=== PATIENT | female | born 2000 | race Caucasian/White ===

== ENCOUNTER 2023-11-08 06:49 | Emergency (ER) | payer OTHER ==
[~2023-11-08] VITALS: Ht 152.4 cm; Wt 99.8 kg
[2023-11-08 06:54] VITALS: BP 121/79; PULSE 85; RESP 16; TEMP 97.8; O2SAT 100
[2023-11-08] MEDS ORDERED: AMOX1TAB8 PO (07:13)
[2023-11-08] MEDS ORDERED: NAPR-54 PO (07:13)
[2023-11-08] MEDS ORDERED: OFLO5SOL27 LEFT EAR (07:13)
[2023-11-08] MEDS ORDERED: PSEU120T23 PO (07:13)
[2023-11-08 07:44] VITALS: BP 121/79; PULSE 85; RESP 16; TEMP 97.8; O2SAT 100
== END 2023-11-08 07:44 | disposition home or self-care (01) ==
LOC: MED 06:49
DX: H60.92 Unspecified otitis externa, left ear (principal); Z79.899 Other long term (current) drug therapy
CPT/HCPCS: 99283

== ENCOUNTER 2024-01-20 20:19 | Emergency (ER) | payer OTHER ==
[~2024-01-20] VITALS: Ht 152.4 cm; Wt 104.3 kg
[~2024-01-20 20:19] MED LIST: AMOX1TAB8 PO; NAPR-337 PO; OFLO5SOL27 LEFT EAR; PSEU120T23 PO
[2024-01-20 20:36] VITALS: BP 123/76; PULSE 77; RESP 16; TEMP 97.4; O2SAT 98
== END 2024-01-20 21:58 | disposition left against medical advice (07) ==
LOC: MED 20:19
DX: R21 Rash and other nonspecific skin eruption (principal); Z53.21 Procedure and treatment not carried out due to patient leaving prior to being seen by health care provider
CPT/HCPCS: 99281